=== PATIENT | female | born 1965 | race Caucasian/White ===

== ENCOUNTER 2021-12-15 12:30 | Outpatient (CLI) | payer MEDICARE ==
--- NOTE | 2021-12-15 13:11 | XRAY Report ---
PROCEDURE: Chest 2 View X-Ray INDICATIONS: BRONCHIECTASIS TECHNIQUE: 2 view(s) of the chest. COMPARISON: None. FINDINGS: SUPPORT DEVICES: None. LUNGS/PLEURA: No focal consolidation, pleural effusion or space-occupying pneumothorax. MEDIASTINUM: The cardiomediastinal silhouette is within normal limits. BONES/SOFT TISSUES: No acute abnormality. Bilateral breast implants are noted. IMPRESSION: 1.No acute cardiopulmonary abnormality. Reviewed by: Ty Brown MD on 12/15/2021 1:10 PM PDT Approved by: Ty Brown MD on 12/15/2021 1:10 PM PDT Station ID: [id number]
== END 2021-12-15 12:31 | disposition home or self-care (01) ==
LOC: DI 12:30
PROVIDERS: ATTEND Internal Medicine
DX: J47.9 Bronchiectasis, uncomplicated (principal)

== ENCOUNTER 2022-06-03 07:17 | Day surgery (SDC) | payer MEDICARE ==
[2022-06-03] MEDS ORDERED: PROPOFOL 200 MG/20 ML VIAL IVP ONE (08:19)
--- NOTE | 2022-06-03 08:49 | ANESTHESIA ---
Pre-Anesthesia VS, & Labs - Diagnosis hx of polyps - Procedure colonoscopy Vital Signs: Temp Pulse Resp BP Pulse Ox O2 Flow Rate 36.2 C L 96 16 113/79 96 06/03/22 07:31 06/03/22 07:31 06/03/22 07:31 06/03/22 07:31 06/03/22 07:31 Height: 5 ft 5 in Weight (kg): 63.1 kg Body Mass Index: 23.1 BMI Classification: Normal - NPO >8 hours - Is Patient ?: No Home Medications and Allergies Home Medications: Ambulatory Orders Cholecalciferol [Vitamin D3] 50,000 unit PO OAW 05/25/22 Cyanocobalamin [Vitamin B-12] 1,000 mcg IM OAW 05/25/22 HYDROmorphone [Dilaudid] 2 mg PO ONCE PRN 05/25/22 Ibuprofen [Motrin] 600 mg PO Q6H PRN 05/25/22 Ondansetron Odt [Zofran Odt] 4 mg TL Q6H PRN 05/25/22 Sumatriptan Succinate [Imitrex] 100 mg PO PRN PRN 05/25/22 Cholecalciferol [Vitamin D3] 50,000 unit PO OAW 05/25/22 Cyanocobalamin [Vitamin B-12] 1,000 mcg IM OAW 05/25/22 HYDROmorphone [Dilaudid] 2 mg PO ONCE PRN 05/25/22 Ibuprofen [Motrin] 600 mg PO Q6H PRN 05/25/22 Ondansetron Odt [Zofran Odt] 4 mg TL Q6H PRN 05/25/22 Sumatriptan Succinate [Imitrex] 100 mg PO PRN PRN 05/25/22 Allergies/Adverse Reactions: Allergies Allergy/AdvReac Type Severity Reaction Status Date / Time acetaminophen Allergy "has had Verified 05/25/22 13:01 lifetime dose limit" Echinacea Allergy advanced Verified 05/25/22 13:01 lupus Penicillins Allergy Anaphylaxis Verified 05/25/22 12:59 scallops Allergy Anaphylaxis Verified 05/25/22 13:01 walnut Allergy Anaphylaxis Verified 05/25/22 13:01 Anes History & Medical History - Anesthetic History Anesthesia Complications: reports: No previous complications Family history of Anesthesia Complications: Denies Family history of Malignant Hyperthermia: Denies - Medical History Cardiovascular: reports: [place], Arrhythmia Pulmonary: reports: Other Gastrointestinal: reports: Colon polyps, C.difficile, Other Urinary: reports: Chronic bladder infection Musculoskeletal: reports: Fibromyalgia, Chronic back pain Endocrine/Autoimmune: reports: Systemic lupus erythematosus Skin: reports: Eczema - Surgical History General: reports: Colonoscopy, Other Eyes Ears Nose Throat (EENT): reports: Rhinoplasty Cardiothoracic: reports: Cardiac catheterization Gynecologic: reports: section, Hysterectomy, Breast implants, Other Orthopedic: reports: Hip replacement Exam General: Alert, Oriented x3, Cooperative Dental: WNL Mouth Openin Fingerbreadth Neck Mobility: Normal Mallampati classification: I Thyromental Distance: 4-6 cm Respiratory: Lungs clear Cardiovascular: Regular rate Plan Anesthesia Type: Total IV Consent for Procedure(s) Verified and Reviewed: Yes Code Status: Attempt Resuscitation ASA classification: 2-Mild systemic disease Is this case an emergency?: No
[2022-06-03] MEDS ORDERED: LACTATED RINGERS 1,000 ML IV ONE (09:29)
[2022-06-03 10:04] VITALS: BP 122/90
--- NOTE | 2022-06-03 14:02 | ANESTHESIA POST OP EVALUATION ---
Anesthesia Post Eval - Post Anesthesia Eval Vitals: Last Vital Signs Temp 36.7 C 06/03/22 10:03 Pulse 66 06/03/22 10:03 Resp 16 06/03/22 10:03 BP 122/90 H 06/03/22 10:03 Pulse Ox 99 06/03/22 10:03 O2 Flow Rate CV Function Including HR & BP: Stable Pain Control: Satisfactory Nausea & Vomiting: Negative Mental Status: Baseline Respiratory Status: Airway Patent Hydration Status: Satisfactory Anesthesia Complications: None
== END 2022-06-03 07:18 | disposition home or self-care (01) ==
LOC: SDS 07:17
PROVIDERS: ATTEND Surgery
DX: Z12.11 Encounter for screening for malignant neoplasm of colon (principal); K64.4 Residual hemorrhoidal skin tags; K64.8 Other hemorrhoids; K60.2 Anal fissure, unspecified; K57.30 Diverticulosis of large intestine without perforation or abscess without bleeding; Z86.010 Personal history of colon polyps; Z87.891 Personal history of nicotine dependence
CPT/HCPCS: G0105; J7120